=== PATIENT | female | born 1935 | race Caucasian/White ===

== ENCOUNTER → 2020-08-01 12:14 | Outpatient (CLI) | payer MEDICARE, SELFPAY ==
--- NOTE | ~2020-08-01 | XR_ITS ---
XR chest 2V DATE: 08/01/2020 12:30 INDICATION: Malignant neoplasm of lung TECHNIQUE: 2 views COMPARISON: 01/05/2016 2 view chest 11/28/2016 CT chest high resolution scan FINDINGS: Status post right thoracotomy and right partial pneumonectomy with associated right lung vo lume loss and mild rightward shift of the heart mediastinum. Status post sternotomy. Surgical clips are noted in left upper quadrant and right upper quadrant of the abdomen. Status post anterior C7-T1 spine surgical fusion. The lungs are hyperinflated but clear of infiltrate or consolidation. No pleural effusion or pulmonar y vascular congestion or pneumothorax is evident. Diffuse osteopenia. IMPRESSION: Status post right thoracotomy and partial right pneumonectomy Status post sternotomy Status post C7-T1 surgical fusion Postoperative change of left and right upper quadrants of abdomen No active cardiopulmonary disease or significant change since 01/05/2016 Reviewed, dictated and finalized at location A.
== END ==
PROVIDERS: PCP Family Medicine; Visit Provider Internal Medicine Medical Oncology
DX: C34.00 Malignant neoplasm of unspecified main bronchus (principal)
CPT/HCPCS: 71046

== ENCOUNTER 2021-02-01 14:07 | Emergency (ER) | payer MEDICARE, SELFPAY ==
--- NOTE | ~2021-02-01 | NM_ITS ---
EXAMINATION: NM pulmonary perfusion DATE: 02/01/2021 17:30 INDICATION: Shortness of breath TECHNIQUE: 3.5 mCi Tc-99m MAA was administered intravenously for perfusion images. Scintigraphic imag es of the chest were obtained. COMPARISON: None FINDINGS: Perfusion images show decreased perfusion in the right lung base matched with a chest radiographic ab normality. IMPRESSION: 1. Low probability for pulmonary embolism. Reviewed, dictated and finalized at location A.
--- NOTE | ~2021-02-01 | XR_ITS ---
EXAMINATION: XR chest 2V DATE: 02/01/2021 17:37 INDICATION: Shortness of breath TECHNIQUE: PA and lateral views of the chest are obtained. COMPARISON: 08/01/2020 FINDINGS: There are airspace opacities of the right lung base. A small right pleural effusion is pres ent. There is no pneumothorax. Cardiomegaly is noted. Median sternotomy wires and mediastinal surgica l clips are seen, likely from prior coronary artery bypass grafting. There is moderate thoracic spond ylosis. Surgical clips in the right upper quadrant are likely from prior cholecystectomy. Surgical ch anges are also noted in the left upper quadrant and at the cervicothoracic junction. IMPRESSION: 1. Right basilar airspace opacity, consistent with atelectasis versus pneumonia. Reviewed, dictated and finalized at location A. IMPRESSION: 1. Right basilar airspace opacity, consistent with atelectasis versus pneumonia .
--- NOTE | 2021-02-01 14:25 | ECG_ITS ---
Measurements Intervals [place] Rate: 83 P: 73 FL: 236 QRS: -31 QRSD: 93 T: 72 QT: 385 QTc: 453 Interpretive Statements SINUS RHYTHM WITH FIRST DEGREE AV BLOCK LEFT AXIS DEVIATION BORDERLINE R WAVE PROGRESSION, ANTERIOR LEADS BORDERLINE ST-T WAVE ABNORMALITY- INF/LAT LEADS BASELINE ARTIFACT- I, II, III, AVF, V6 ABNORMAL ECG Electronically Signed On 02-01-2021 14:38:30 CDT by Meño Gomez D.O.
[2021-02-01 14:34] VITALS: BP 150/68; PULSE 85; RESP 22; TEMP 36.7; O2SAT 99
--- NOTE | 2021-02-01 14:40 | ED.SOB ---
HPI - SOB/Dyspnea General Chief Complaint: Shortness of Breath/Dyspnea Stated Complaint: SOB x2 months from PCP office Time Seen by Provider: 02/01/21 14:11 History of Present Illness HPI Narrative: Shortness of breath for at least the past 2 months. She reports that she has been seeing her PCP at least every other week over this time. She had a CT scan done a few days ago showing findings consistent with COPD and fibrosis. She also had labs done yesterday including elevated T4, BNP of 1900. Her PCP transferred her her for further evaluation and treatment. They said that they were concerned for a PE, but she has a contrast allergy. They have not treated her for the hyperthyroidism. Related Data Home Medications Medication Instructions Recorded Confirmed amiodarone 200 mg tablet 200 mg PO DAILY 08/30/20 11/24/20 aspirin 81 mg tablet,delayed 81 mg PO DAILY 08/30/20 11/24/20 release cyanocobalamin (vitamin B-12) 1 tablet PO tablet 08/30/20 11/24/20 folic acid 1 mg tablet 1 mg PO DAILY 08/30/20 11/24/20 furosemide 40 mg tablet 40 mg PO QAM 08/30/20 11/24/20 metoprolol tartrate 25 mg tablet 25 mg PO DAILY 08/30/20 11/24/20 pantoprazole 40 mg tablet,delayed 40 mg PO QAM 08/30/20 11/24/20 release potassium chloride 10 mEq 10 meq PO DAILY 08/30/20 11/24/20 capsule,extended release warfarin 2 mg tablet 2 mg PO DAILY tablet 09/13/20 11/24/20 Allergies Allergy/AdvReac Type Severity Reaction Status Date / Time Penicillins Allergy Mild Unknown Verified 02/01/21 14:32 red dye Allergy Mild Unknown Verified 02/01/21 14:32 Sulfa (Sulfonamide Allergy Mild Unknown Verified 02/01/21 14:32 Antibiotics) Review of Systems Review of Systems: All systems reviewed & are unremarkable except as noted in HPI and below Constitutional: Constitutional: Denies fever(s) and Denies weakness Eyes: Eyes: Reports no additional eye complaints ENT: Reports system reviewed and no additional complaints, except as documented Cardiovascular: Cardiovascular: Denies chest pain Respiratory: Respiratory: Reports as per HPI Gastrointestinal: Gastrointestinal: Reports no additional gastrointestinal complaints Genitourinary: Genitourinary: Denies hematuria and Denies dysuria Neurologic: Denies confusion, Denies dizziness and Denies weakness Psychiatric: Psychiatric: Denies anxiety Endocrine: Endocrine: Reports fatigue PMFSH Past Medical History Medical History Acquired hemolytic anemia Arthritis Blood clot in vein Cancer Cardiac arrhythmia CHF (congestive heart failure) GERD (gastroesophageal reflux disease) Heart attack Heart disease Large cell lymphoma Lupus (systemic lupus erythematosus) Malignant neoplasm of lung Surgical History Surgical History H/O heart surgery H/O splenectomy History of lung surgery Hx of cholecystectomy Hx of neck surgery Family History Family History Mother Diabetes mellitus Heart disease Father COPD (chronic obstructive pulmonary disease) Emphysema lung Social History Social History Smoking status: Never smoker Alcohol intake: never Substance use: never Substance use type: does not use Gender identity (if verbalized by the patient): Female Exam Const: General: healthy appearing, no acute distress and alert Nutritional Appearance: well nourished Orientation/consciousness: patient oriented x3 HENMT: Head: normal to inspection Chest: Chest palpation & inspection: normal inspection of the chest and no tenderness Resp: Auscultation: crackles bilateral at the base and wheezes scattered wheezes Cardio: Rate: regular rate Rhythm: regular rhythm GI: Inspection: non-distended GI Palp: Yes Soft to palpation and No Tenderness to palpation present (GI) Skin:
--- NOTE | 2021-02-01 16:35 | PC.NURSE ---
Multiple attempts at IV access, ER MD at bedside with ultrasound.
[2021-02-01 16:36] VITALS: BP 120/65; PULSE 74; RESP 16; O2SAT 95
[2021-02-01 17:47] VITALS: BP 137/70; PULSE 73; RESP 20; O2SAT 98
[2021-02-01 19:11] VITALS: BP 122/78; PULSE 77; RESP 14; TEMP 36.3; O2SAT 97
== END 2021-02-01 19:09 | disposition home or self-care (01) ==
PROVIDERS: Emergency Provider Emergency Medicine; PCP Family Medicine
DX: E05.90 Thyrotoxicosis, unspecified without thyrotoxic crisis or storm (principal); R06.00 Dyspnea, unspecified; I50.9 Heart failure, unspecified; M32.9 Systemic lupus erythematosus, unspecified; I25.2 Old myocardial infarction; K21.9 Gastro-esophageal reflux disease without esophagitis; M19.90 Unspecified osteoarthritis, unspecified site; Z85.118 Personal history of other malignant neoplasm of bronchus and lung; Z86.711 Personal history of pulmonary embolism; Z79.82 Long term (current) use of aspirin; Z79.01 Long term (current) use of anticoagulants; I51.9 Heart disease, unspecified; Z90.81 Acquired absence of spleen; R91.8 Other nonspecific abnormal finding of lung field; I44.0 Atrioventricular block, first degree; R94.31 Abnormal electrocardiogram [ECG] [EKG]
CPT/HCPCS: 71046; 78580; 93005; 99284; A9540